=== PATIENT | female | born 1975 | race Caucasian/White ===

== ENCOUNTER 2023-06-30 11:32 | Emergency (ER) | payer BC ==
[2023-06-30] MEDS ORDERED: Ondansetron ODT 4 MG TAB ONE (12:06)
[2023-06-30] MEDS ORDERED: Morphine 4 MG/ML VIAL ONE (12:06)
[2023-06-30] MEDS ORDERED: Ketorolac Tromethamine 60 MG/2 ML VIAL ONE (14:58)
== END 2023-06-30 15:20 | disposition home or self-care (01) ==
LOC: NAV ERS 11:32
DX: M17.11 Unilateral primary osteoarthritis, right knee (principal); I10 Essential (primary) hypertension; Z79.899 Other long term (current) drug therapy
CPT/HCPCS: 96372; J1885; J2270; Q0162